=== PATIENT | female | born 1995 | race Hispanic/Latino ===

== ENCOUNTER 2025-04-20 22:35 | Day surgery (SDC) | payer SELFPAY ==
[2025-04-20 22:56] VITALS: BMI 43.4
[2025-04-20] MEDS ORDERED: hydrALAZINE 20 MG/ML VIAL SLOW IVP PRN (23:54)
[2025-04-21 00:39] LABS: Hematocrit 35.4 % (34.9-44.5); Hemoglobin 12.0 g/dL (12.0-15.5); Platelet Count 428 10x3/uL (150-450)
== END 2025-04-21 05:30 | disposition home or self-care (01) ==
LOC: CSHLD/OP 22:35
PROVIDERS: ATTEND Obstetrics & Gynecology
DX: O46.93 Antepartum hemorrhage, unspecified, third trimester (principal); O99.891 Other specified diseases and conditions complicating pregnancy; R51.9 Headache, unspecified; O24.414 Gestational diabetes mellitus in pregnancy, insulin controlled; O47.03 False labor before 37 completed weeks of gestation, third trimester; Z3A.30 30 weeks gestation of pregnancy; Z91.040 Latex allergy status; Z79.899 Other long term (current) drug therapy
CPT/HCPCS: 36415; 85014; 85018; 85049; 86850; 86900; 86901; 96360; 99285